=== PATIENT | male | born 1975 | race Two or more races ===

== ENCOUNTER 2024-08-16 18:26 | Emergency (ER) | payer OTHER, SELFPAY ==
[2024-08-16 18:56] VITALS: BP 147/83; PULSE 88; O2SAT 96
[2024-08-16] MEDS: 0.9 % Sodium Chloride 1,000 ML 999 ML IV (19:00)
[2024-08-16 19:04] VITALS: BP 122/70; PULSE 85; RESP 16; TEMP 36.7; O2SAT 97; BMI 34.3
[2024-08-16 19:30] VITALS: BP 109/66; PULSE 80; RESP 16; TEMP 36.6; O2SAT 97
[2024-08-16] MEDS: Famotidine/PF 20 MG/2 ML VIAL IVPUSH (19:30)
--- NOTE | 2024-08-16 22:31 | ED.GENADULT ---
HPI - General Adult General Chief complaint: Allergic Reaction Stated complaint: allergic reaction swelling hives ate shrimp+pollen Time Seen by Provider: 08/16/24 18:44 Source: patient Limitations: no limitations History of Present Illness ED Provider: Vale Waldron PA-C HPI narrative: 49-year-old male presents with a allergic reaction. Patient states he was cleaning pollen off his spouse's car, when he developed immediate facial swelling and urticaria. Patient states he developed wheezing he uses albuterol at home. Patient's symptoms have improved, he received intramuscular epinephrine and Benadryl pre arrival via EMS. Denies angioedema, swelling of tongue, dysphagia, odynophagia, chest pain or shortness of breath. Denies new food, only new medication. Related Data Previous Rx's ?Medication ?Instructions ?Recorded epinephrine 0.3 mg/0.3 mL 0.3 mg (0.3 mL) IM Q10M PRN 08/16/24 injection, auto-injector (EpiPen hypersensitivity reaction #2 ea 2-Mat) methylprednisolone 4 mg tablets in 4 mg PO QAM #21 ea 08/16/24 a dose pack (Medrol (Mat)) Allergies Allergy/AdvReac Type Severity Reaction Status Date / Time No Known Allergies Allergy Unverified 08/16/24 19:05 Review of Systems Review of Systems: Yes all other systems are reviewed and are negative Constitutional: Constitutional: Denies fatigue and Denies fever(s) ENT: Denies dysphagia, Denies odynophagia, Denies sore throat, Denies throat swelling and Denies tongue swelling Cardiovascular: Cardiovascular: Denies chest pain and Denies dyspnea Respiratory: Respiratory: Denies cough, Denies dyspnea and Reports wheezing Gastrointestinal: Gastrointestinal: Denies dysphagia and Denies odynophagia Endocrine: Endocrine: Denies fatigue Allergic/Immunologic: Allergic/Immunologic: Denies throat swelling, Denies tongue swelling and Reports wheezing PMFSH Past Medical History Attestation statement: The following information was validated with the patient. Social History Social History Smoked in Last 30 Days: No Use of substances other than those prescribed or required for medical reasons: No Advance Directives: No Advance Directives Information Provided: Yes Do you have a plan to hurt others: No Plan Physical Exam ED Vital Signs: Vital Signs - 24 hr 08/16/24 19:04 08/16/24 19:30 Temperature 98.0 F 97.9 F Pulse Rate 85 80 Respiratory Rate 16 16 Blood Pressure 122/70 109/66 Pulse Oximetry 97 97 Oxygen Delivery Method Room Air Room Air BMI result Body Mass Index 34.3 Const Other: Alert well-appearing Orientation/consciousness: patient oriented x3 HENMT Other: Uvula midline, not edematous, the tongue is not swollen, no angioedema, subtle generalized facial swelling Eyes Other: Subtle swelling of bilateral eyelids Resp Other: Lungs clear to auscultation no wheezing, no stridor Effort & Inspection: normal respiratory effort Cardio Other: Normal peripheral perfusion Skin Other: Warm dry no rash, no urticaria at this time Neuro General: patient oriented x3, gait normal, no focal motor deficits and CN's II-XI intact bilaterally Psych Other: Cooperative Course Reevaluation(s) Reevaluation #1: At the time of discharge, no progression of allergic reaction, generalized facial swelling resolved Medications Administered Discontinued Medications Generic Name Dose Route Start Last Admin Trade Name Freq PRN Reason Stop Dose Admin Famotidine 20 mg 08/16/24 18:49 08/16/24 19:30 Famotidine/Pf 20 Mg/2 Ml Vial IVPUSH 08/16/24 18:50 20 mg ONCE ONE Administration Sodium Chloride 1,000 mls @ 999 mls/hr 08/16/24 19:00 08/16/24 19:00 Ns IV 08/16/24 20:00 999 mls/hr .Q1H1M IVANIA Administration Methylprednisolone Sodium Succinate 125 mg 08/16/24 19:30 08/16/24 19:40 Methylprednisolone Sod Succ 125 Mg Vial IVPUSH 08/16/24 19:31 125 mg ONCE ONE Administration Medical Decision Making Medical Decision Making [facility] Narrative: 49-year-old male with a history of asthma presents with a allergic reaction. Patient states he was cleaning pollen off his spouse's car, when he developed immediate facial swelling and urticaria. Patient states he developed wheezing he uses albuterol at home. Patient's symptoms have improved, he received intramuscular epinephrine and Benadryl pre arrival via EMS. Denies angioedema, swelling of tongue, dysphagia, odynophagia, chest pain or shortness of breath. Denies new food, only new medication. Problem: Asthma History: Per patient I have considered the following differential diagnoses: Allergic reaction, urticaria, anaphylaxis, angioedema Plan: We will be observing the patient for a period of 3 hours, he received a dose of epinephrine pre arrival. We will be giving steroid, famotidine, IV fluids and we will keep the patient monitored Discharge Plan Discharge Clinical Impression: Urticaria, Allergic reaction Patient Disposition: Home, Self-Care Instructions: Urticaria (ED), General Allergic Reaction (ED), Allergy Testing (ED) Additional Instructions: You were treated for an allergic reaction. There was no progression of the reaction since you have been monitored in the emergency room. I am prescribing an EpiPen, if you develop a similar reaction in the future, administer the medication to yourself, then seek emergent medical attention. You should familiarize with the use of the EpiPen, and keep it with you at all times. Take the Medrol Dosepak as directed, this is a steroid taper. You can also use [id number] Zyrtec, this will help with your hives. Follow up with your primary care provider as needed. Prescriptions: New methylprednisolone [Medrol (Mat)] 4 mg tablets,dose pack 4 mg PO QAM Qty: 21 0RF Rx Instructions: Take per package instructions epinephrine [EpiPen 2-Mat] 0.3 mg/0.3 mL auto-injector 0.3 mg IM Q10M PRN (Reason: hypersensitivity reaction) Qty: 2 0RF Rx Instructions: for 2 doses Stand Alone Forms: Work/School Release Print Language: Ukrainian
[2024-08-16 22:52] VITALS: BP 113/55; PULSE 87; RESP 16; TEMP 36.6; O2SAT 95
== END 2024-08-16 22:53 | disposition home or self-care (01) ==
PROVIDERS: Emergency Provider Internal Medicine; PCP Internal Medicine
DX: T78.40XA Allergy, unspecified, initial encounter (principal); L50.9 Urticaria, unspecified; X58.XXXA Exposure to other specified factors, initial encounter
CPT/HCPCS: 96361; 96374; 96375; 99284; J1308; J2919